=== PATIENT | male | born 1950 | race Asian ===

== ENCOUNTER 2016-05-30 07:38 | Day surgery (SDC) | payer MEDICARE ==
[~2016-05-30] VITALS: Ht 152.4 cm; Wt 60.5 kg
[2016-05-30 07:49] VITALS: BP 119/72
[2016-05-30] MEDS: LACTATED RINGERS 1,000 ML IV SCH (08:08)
[2016-05-30] MEDS: SODIUM CHLORIDE FLUSH 3 ML SYR IV PRN (08:09)
[2016-05-30] MEDS ORDERED: PROPOFOL 20 ML IV ONE (08:40)
[2016-05-30] MEDS ORDERED: ALFENTANIL 500 MCG/ML (ALFENTA) 5 ML AMP IV ONE ×2 (08:41)
[2016-05-30] MEDS ORDERED: MIDAZOLAM 2 MG/2 ML (VERSED) VIAL ONE (08:41)
[2016-05-30] MEDS ORDERED: NALOXONE 0.4 MG/ML (NARCAN) 1 ML VIAL ONE (09:30)
[2016-05-30] MEDS ORDERED: FLUMAZENIL (ROMAZICON) 0.1 MG/ML 5 ML VIAL ONE (09:30)
[2016-05-30 09:37] VITALS: BP 127/74
[2016-05-30 09:59] VITALS: BP 123/79
== END 2016-05-30 10:06 | disposition home or self-care (01) ==
LOC: ASC 07:38
PROVIDERS: ATTEND Surgery
DX: Z12.11 Encounter for screening for malignant neoplasm of colon (principal); D12.5 Benign neoplasm of sigmoid colon; K63.5 Polyp of colon; F17.200 Nicotine dependence, unspecified, uncomplicated
CPT/HCPCS: 88305

== ENCOUNTER → 2016-06-06 | Outpatient (CLI) | payer MEDICARE | LOC: LAB 12:43 | PROVIDERS: ATTEND Urology | DX: R31.29 Other microscopic hematuria (principal) | CPT/HCPCS: 36415; 82565; 84520; 88112 ==

== ENCOUNTER → 2016-06-13 | Outpatient (CLI) | payer MEDICARE | LOC: RAD 07:48 | PROVIDERS: ATTEND Urology | DX: R31.29 Other microscopic hematuria (principal) | CPT/HCPCS: 74178; Q9967 ==

== ENCOUNTER 2016-06-27 10:32 | Day surgery (SDC) | payer MEDICARE ==
[~2016-06-27] VITALS: Ht 152.4 cm; Wt 62.7 kg
[~2016-06-27 10:32] MED LIST: LACTATED RINGERS 1,000 ML IV SCH; LEVOFLOXACIN 500 MG TAB (LEVAQUIN) PO SCH; LIDOCAINE 2% (XYLOCAINE) 10 ML UROJECT MM ONE; MECL-105 PO; NO HOME MEDICATIONS; SODIUM CHLORIDE FLUSH 3 ML SYR IV PRN
[2016-06-27 10:50] VITALS: BP 123/72
[2016-06-27 12:25] VITALS: BP 131/84
--- NOTE | 2016-06-27 13:14 | OPERATIVE REPORT ---
DATE OF OPERATION: 06/27/2016 PRE-OPERATIVE DIAGNOSIS: Hematuria POST-OPERATIVE DIAGNOSIS: 1. Hematuria. 2. Mild BPH. OPERATIVE PROCEDURE: Cystoscopy SURGEON: Jose Corado MD ANESTHESIA: Local COMPLICATIONS: None SPECIMENS: None BLOOD LOSS: Minimal. None replaced. PROCEDURE: The patient was brought to the operating room and prepped and draped supine on the cart. Then 2% lidocaine gel was instilled per the urethra. Flexible cystoscopy was performed. The anterior urethra is normal. The posterior urethra shows mild to moderate BPH. The ureteral orifices appear normal in form and position. There is no evidence of stone, tumor or foreign object in the bladder. The patient tolerated the procedure well. The scope was withdrawn and the patient was taken in stable condition to the post anesthesia care unit. He was asked to return to the clinic in 1 year for urinalysis and urine cytology prior and to return sooner for voiding dysfunction, gross hematuria or pain.
== END 2016-06-27 12:30 | disposition home or self-care (01) ==
LOC: ASC 10:32
PROVIDERS: ATTEND Urology
DX: R31.21 Asymptomatic microscopic hematuria (principal); N40.0 Benign prostatic hyperplasia without lower urinary tract symptoms; F17.210 Nicotine dependence, cigarettes, uncomplicated
CPT/HCPCS: 52000; A9270

== ENCOUNTER → 2016-08-22 | Outpatient (CLI) | payer MEDICARE ==
[~2016-08-22] MED LIST changes: -LACTATED RINGERS 1,000 ML IV SCH; -LEVOFLOXACIN 500 MG TAB (LEVAQUIN) PO SCH; -LIDOCAINE 2% (XYLOCAINE) 10 ML UROJECT MM ONE; -SODIUM CHLORIDE FLUSH 3 ML SYR IV PRN
--- NOTE | 2016-08-22 13:42 | Diagnostic Imaging Report ---
PROCEDURE: CT chest with contrast only. TECHNIQUE: Multiple contiguous axial images were obtained through the chest after administration of intravenous contrast. INDICATION: Left lung nodule. AVAILABLE COMPARISONS: No prior thoracic CT scan. Any prior CT of the thorax would be helpful. FINDINGS: An 8 mm solid noncalcified pleural-based nodule is present in the left lower lobe. The lung parenchyma is otherwise unremarkable. Axillary, mediastinal, and hilar lymph nodes are within normal limits. The aorta is not significantly ectatic. Pulmonary vessels are not well opacified. There is no pleural or pericardial effusion. Images through the upper abdomen show normal adrenal glands and the visualized pancreas and liver are negative. No osteolytic or osteoblastic lesion is identified. IMPRESSION: An 8 mm left lower lobe nodule that could be neoplasm or granuloma. Consider followup CT scan. The nodule is at the lower limits of PET resolution. PULMONARY NODULE FOLLOW-UP 2017 Guidelines for Management of Incidental Pulmonary Nodules Detected on CT Images (with no history of primary tumor) : from the [employer] SOLID NODULES SOLITARY NODULE SIZE: 6-8 MM low risk patients: follow-up at 6-12 months, then consider further follow-up at 18-24 months high risk patients: initial follow-up CT at 6-12 months and then at 18-24 months if no change Dictated by: Dictated on workstation # [id number]
== END ==
LOC: RAD 10:40
PROVIDERS: ATTEND Family Medicine
DX: R91.1 Solitary pulmonary nodule (principal)
CPT/HCPCS: 71260; Q9967

== ENCOUNTER → 2016-08-30 | Outpatient (CLI) | payer MEDICARE | LOC: RT 07:08 | PROVIDERS: ATTEND Family Medicine | DX: R91.1 Solitary pulmonary nodule (principal); Z87.891 Personal history of nicotine dependence | CPT/HCPCS: 94060 ==